=== PATIENT | female | born 1980 | race African-American/Black ===

== ENCOUNTER 2020-07-22 19:09 | Emergency (ER) | payer BC ==
[~2020-07-22] VITALS: Ht 165.1 cm; Wt 75.0 kg
[2020-07-22 19:12] VITALS: BP 130/95
== END 2020-07-23 00:15 | disposition left against medical advice (07) ==
LOC: ER 19:09
DX: R42 Dizziness and giddiness (principal); Z53.21 Procedure and treatment not carried out due to patient leaving prior to being seen by health care provider